=== PATIENT | male | born 1940 | race Caucasian/White ===

== ENCOUNTER → 2016-06-07 | Outpatient (CLI) | payer MEDICARE, OTHER ==
--- NOTE | 2016-06-13 08:36 | RSPPFT ---
DATE OF PROCEDURE: 06/07/16 COMMENTS: VOLUMES DYNAMIC: FVC and FEV1 mildly reduced. STATIC: THE LUNGS ARE CLEAR, RV and FRC moderately decreased. FLOWS: FEV1% and FEF 25-75 normal. DIFFUSION; Severely reduced. FLOW VOLUME LOOP: Restrictive configuration. IMPRESSION: Moderately severe restrictive ventilatory defect with a severe reduction in diffusion. Airways resistance is normal. There is some improvement post-bronchodilator.
== END ==
LOC: PHRSP 08:50
PROVIDERS: ATTEND Internal Medicine
DX: J84.10 Pulmonary fibrosis, unspecified (principal)
CPT/HCPCS: 94060; 94620; 94726; 94729